=== PATIENT | female | born 1985 | race Caucasian/White ===

== ENCOUNTER 2017-01-17 16:09 | Outpatient (CLI) | END 2017-01-17 16:10 | disposition home or self-care (01) | LOC: LAB 16:09 | PROVIDERS: ATTEND Emergency Medicine | DX: J06.9 Acute upper respiratory infection, unspecified (principal) | CPT/HCPCS: 87651; 87880 ==

== ENCOUNTER 2017-03-16 16:06 | Outpatient (CLI) ==
[2017-03-16 16:10] LABS: FLU INTERNAL QC INTERNAL QC VALID; RAPID FLU A NEGATIVE (NEGATIVE); RAPID FLU B NEGATIVE (NEGATIVE)
== END 2017-03-16 16:07 | disposition home or self-care (01) ==
LOC: LAB 16:06
PROVIDERS: ATTEND Emergency Medicine
DX: R68.89 Other general symptoms and signs (principal)
CPT/HCPCS: 87804

== ENCOUNTER 2017-10-13 13:53 | Outpatient (CLI) | END 2017-10-13 13:54 | disposition home or self-care (01) | LOC: LAB 13:53 | PROVIDERS: ATTEND Family Medicine | DX: R10.13 Epigastric pain (principal) | CPT/HCPCS: 87338 ==

== ENCOUNTER 2017-11-09 16:01 | Outpatient (CLI) | END 2017-11-09 16:02 | disposition home or self-care (01) | LOC: FCC-LAB 16:01 | PROVIDERS: ATTEND Family Medicine | DX: I88.9 Nonspecific lymphadenitis, unspecified (principal) | CPT/HCPCS: 36415; 85025; 87471 ==

== ENCOUNTER 2017-11-11 11:57 | Outpatient (CLI) ==
--- NOTE | 2017-11-11 12:34 | US ---
EXAM: Ultrasound extremity nonvascular left HISTORY: Nonspecific lymphadenitis, unspecified COMPARISON: None FINDINGS: Ultrasound extremity nonvascular left was performed in the region of clinical concern, lef t groin region. In this region, there are three enlarged lymph nodes that retain their fatty luis, w ith largest measuring 1.6 x 2.0 x 3.0 cm. IMPRESSION: Left inguinal lymphadenopathy, nonspecific/indeterminate. Clinical follow-up recommende d. Consider follow-up ultrasound as indicated.
== END 2017-11-11 11:58 | disposition home or self-care (01) ==
LOC: RAD 11:57
PROVIDERS: ATTEND Family Medicine
DX: I88.9 Nonspecific lymphadenitis, unspecified (principal)
CPT/HCPCS: 76882

== ENCOUNTER 2018-05-24 18:38 | Emergency (ER) ==
[2018-05-24 18:42] VITALS: BP 104/43; TEMP 98.9; BMI 25.5
--- NOTE | 2018-05-24 19:04 | ED.PDOC ---
General ED Provider: Dr. LEEANN ENGLE Chief Complaint: Fever Stated Complaint: FLU LIKE SYMPTOMS Time Seen by Physician: 18:45 (CLEMENT PRESENT AT ALL TIMES ) Mode of Arrival: Walk-In Information Source: Patient Exam Limitations: No limitations Primary Care Provider: BUBBA ANGUIANO Nursing and Triage Documentation Reviewed and Agree: Yes Does patient meet sepsis criteria?: No System Inflammatory Response Syndrome: Not Applicable Sepsis Protocol: For patient's 13 years and over: Temp is 96.8 and below OR 101 and greater Pulse >90 BPM Resp >20/minute Acutely Altered Mental Status Are patient's symptoms suggestive of a new infection, such as: -Pneumonia -Skin, Soft Tissue -Endocarditis -UTI -Bone, Joint Infection -Implantable Device -Acute Abdominal Infection -Wound Infection -Meningitis -Blood Stream Catheter Infection -Unknown EENT Complaint Exam - Throat Complaint/Exam Symptoms Are: Still present Timimg: Intermittent Initial Severity: Mild Current Severity: Mild Aggravating: Reports: None Associated Signs and Symptoms: Reports: Chills, Cough, Nasal congestion. Denies : Fever, Dysphagia, Drooling, Foreign body sensation, Wheezing, Hoarseness, Sinus discomfort, Difficulty breathing, Lethargy, Irritability, Decreased activity, Vomiting, Diarrhea, Decreased hearing, Ear drainage Uvula Midline: Yes Wendy-tonsillar Fluctuence: No Scarlatinaform Rash Present: No Lesions: Absent: Lip, Gums, Tongue, Buccal Mucosa, Pharynx Exanthem: Absent: Lip, Gums, Tongue, Buccal Mucosa, Pharynx Stridor Present: No Sinus Tenderness Present: No Tonsillar Hypertrophy Present: No Tonsillar Exudate Present: No Wendy-tonsillar Swelling Present: No Adenopathy Present: No Splenomegaly Present: No Differential Diagnoses: Influenza, Pharyngitis, URI Review of Systems - Review Of Systems Constitutional: Reports: Fever, Malaise, Loss of appetite Eyes: Reports: No symptoms Ears, Nose, Mouth, Throat: Reports: Throat pain Respiratory: Reports: Cough Cardiac: Reports: No symptoms GI: Reports: No symptoms : Reports: No symptoms Musculoskeletal: Reports: No symptoms Skin: Reports: No symptoms Neurological: Reports: No symptoms Endocrine: Reports: No symptoms Hematologic/Lymphatic: Reports: No symptoms All Other Systems: Reviewed and Negative Past Medical History - Past Medical History Previously Healthy: Yes Endocrine: Reports: None Cardiovascular: Reports: None Respiratory: Reports: None Hematological: Reports: None Gastrointestinal: Reports: None Genitourinary: Reports: None Neuro/Psych: Reports: None Musculoskeletal: Reports: None Cancer: Reports: None Last Menstrual Period: 05/08/18 - Surgical History General Surgical History: Reports: None - Family History Family History: Reports: None - Social History Smoking Status: Current every day smoker, Heavy tobacco smoker Hx Substance Use: No Alcohol Screening: None Physical Exam - Physical Exam Appearance: Ill-appearing Ill-appearing: Mild Eyes: STEPHANIE, EOMI, Conjunctiva clear ENT: Erythema Respiratory: Airway patent, Breath sounds clear, Breath sounds equal, Respirations nonlabored Cardiovascular: RRR, Pulses normal, No rub, No murmur GI/: Soft, Nontender, No masses, Bowel sounds normal, No Organomegaly Musculoskeletal: Normal strength, ROM intact, No edema, No calf tenderness Skin: Warm, Dry, Normal color Neurological: Sensation intact, Motor intact, Reflexes intact, Cranial nerves intact, Alert, Oriented Psychiatric: Affect appropriate, Mood appropriate Critical Care Note - Critical Care Note Total Time (mins): 0 Course - Course Vital Signs: Temp Pulse Resp BP Pulse Ox 05/24/18 18:38 98.9 F 94 H 16 104/43 L 96 Departure - Departure Time of Disposition: 19:03 Disposition: HOME SELF-CARE Discharge Problem: Fever Pharyngitis Qualifiers: Pharyngitis/tonsillitis etiology: unspecified etiology Qualified Code(s): J02.9 - Acute pharyngitis, unspecified Instructions: Strep Throat (ED), Pharyngitis (ED) Condition: Good Pt referred to PMD for follow-up: Yes IPMP verified?: No Additional Instructions: Please call your Family Physician as soon as possible to schedule a follow-up appointment. Allergies/Adverse Reactions: Allergies Penicillins Allergy (Severe, Verified 05/24/18 18:44) swelling
== END 2018-05-24 19:10 | disposition home or self-care (01) ==
LOC: ED 18:38
DX: R50.9 Fever, unspecified (principal); R05 Cough; R09.81 Nasal congestion; R53.81 Other malaise; R63.0 Anorexia; R07.0 Pain in throat; Z72.0 Tobacco use; J02.9 Acute pharyngitis, unspecified
CPT/HCPCS: 99282